=== PATIENT | male | born 1990 | race Two or more races ===

== ENCOUNTER 2022-07-10 16:37 | Emergency (ER) | payer OTHER ==
[~2022-07-10] VITALS: Ht 167.6 cm; Wt 68.0 kg
[2022-07-10] MEDS ORDERED: IBUPROFEN 600 MG TABLET PO ONE (18:00)
[2022-07-10] MEDS ORDERED: IBUPROFEN 600 MG TABLET ONE (18:04)
--- NOTE | 2022-07-10 18:36 | NUR ---
Patient discharged to home in stable condition. Written and verbal after care instructions given. Patient verbalizes understanding of instruction. Patient ambulated from hospital without incident. Addendum: 07/10/22 at 1842 by [facility] Foot care supplies and instructions given
[2022-07-10 18:44] VITALS: BP 132/68
== END 2022-07-10 18:44 | disposition home or self-care (01) ==
LOC: ER 16:47
DX: T69.022A Immersion foot, left foot, initial encounter (principal); S90.822A Blister (nonthermal), left foot, initial encounter; S90.422A Blister (nonthermal), left great toe, initial encounter; X58.XXXA Exposure to other specified factors, initial encounter; Y93.89 Activity, other specified; Y92.89 Other specified places as the place of occurrence of the external cause; Y99.8 Other external cause status